=== PATIENT | male | born 1965 | race Caucasian/White ===

== ENCOUNTER 2019-09-29 02:38 | Emergency (ER) | payer OTHER ==
[2019-09-29 03:16] LABS: Bilirubin Negative (Negative); Blood, Urine Negative (Negative); Clarity Clear (Clear); Glucose, Urine (Dipstick) Normal (Negative); Ketone, Urine Negative (Negative); Leukocyte Negative Leu/uL (Negative); Nitrite Negative (Negative); Protein, Urine (Dipstick) Negative (Neg-Trace); Specific Gravity, Urine 1.014 (1.002-1.036); Urobilinogen Normal mg/dL (Less than 2); pH, Urine 5.5 (5.0-9.0)
[2019-09-29 03:38] LABS: Hemoglobin 16.9 g/dL (14.0-18.0); Mean Corpuscular HGB CONC 33.3 g/dL (32.0-36.0); Mean Corpuscular Hemoglobin 31.1 pg (27.0-31.0); Mean Corpuscular Volume 93.4 fL (78.0-98.0); Mean Platelet Volume 6.9 fL (7.4-10.4); Platelet Count 121 thou/uL (130-400); RBC Distribution Width 12.5 % (11.5-14.5); Red Blood Cell (RBC) Count 5.43 mill/uL (4.70-6.10); White Blood Cell (WBC) Count 3.5 thou/uL (4.8-10.8)
[2019-09-29 03:56] LABS: ALT (SGPT) 65 U/L (8-55); AST (SGOT) 32 U/L (5-34); Albumin 4.3 g/dL (3.5-5.0); Alkaline Phosphatase 82 U/L (40-110); Anion Gap 16 mmol/L (10-20); BUN (Urea Nitrogen) 12 mg/dL (8.4-25.7); Calc. Creatinine Clearance 0 mL/min (70-130); Calcium 9.4 mg/dL (7.8-10.44); Carbon Dioxide 19 mmol/L (22-29); Chloride 105 mmol/L (98-107); Estimated GFR-MDRD 66; Globulin 3.1 g/dL (2.4-3.5); Glucose 122 mg/dL (70-105); Potassium 3.8 mmol/L (3.5-5.1); Protein, Total 7.4 g/dL (6.0-8.3); Sodium 136 mmol/L (136-145)
[2019-09-29 04:00] LABS: Lymphocytes 30 % (21-51); MDiff Complete? YES; Monocytes 14 % (0-10); Neutrophil 56 % (42-75); Platelet Morphology Comment Appears Adequate; RBC Morphology Normal
[2019-09-29] MEDS ORDERED: Acetaminophen 500 MG TAB ONE (04:41)
--- NOTE | 2019-09-29 07:44 | RAD ---
XR Chest 1 View Portable History: Weakness and lightheadedness Comparison: None. Findings: Peripheral opacity right upper lobe. Also abnormal opacities within the lingula and left lo wer lobe. Possible scarring right lung base. No pneumothorax. Impression: Multifocal faint airspace opacities can be seen with atypical infectious process includin g COVID-19 pneumonia. Follow-up recommended..
[2019-09-29 15:35] LABS: SARS-CoV-2 N Gene Positive; SARS-CoV-2 orf1ab Positive
[2019-09-29 15:36] LABS: SARS-CoV-2 MS2 Positive; SARS-CoV-2 S Gene Positive
== END 2019-09-29 06:32 ==
LOC: ERS 02:38 → EEVIPCON 02:38 → ERS 06:32
DX: U07.1 COVID-19 (principal); R55 Syncope and collapse; S00.81XA Abrasion of other part of head, initial encounter; E03.9 Hypothyroidism, unspecified; E78.00 Pure hypercholesterolemia, unspecified; F41.9 Anxiety disorder, unspecified; F32.9 Major depressive disorder, single episode, unspecified; N40.0 Benign prostatic hyperplasia without lower urinary tract symptoms; Z87.891 Personal history of nicotine dependence; Z79.899 Other long term (current) drug therapy; W22.8XXA Striking against or struck by other objects, initial encounter; Y92.091 Bathroom in other non-institutional residence as the place of occurrence of the external cause
CPT/HCPCS: 36415; 71045; 80053; 81003; 84484; 85025; 87635; 93005; 96360; 96361; U0003

== ENCOUNTER 2019-10-01 08:10 | Inpatient (IN) | payer OTHER ==
[2019-10-01 09:04] LABS: #Lymphocytes 0.8 thou/uL (1.20-3.40); #Monocytes 0.4 thou/uL (0.11-0.59); #Neutrophils 1.7 thou/uL (1.40-6.50); %Basophils 0.7 % (0.0-1.0); %Lymphocytes 27.8 % (21.0-51.0); %Monocytes 12.3 % (0.0-10.0); %Neutrophils 58.2 % (42.0-75.0); Hemoglobin 15.9 g/dL (14.0-18.0); Mean Corpuscular HGB CONC 34.3 g/dL (32.0-36.0); Mean Corpuscular Volume 90.3 fL (78.0-98.0); Mean Platelet Volume 6.8 fL (7.4-10.4); Platelet Count 139 thou/uL (130-400); RBC Distribution Width 12.3 % (11.5-14.5); Red Blood Cell (RBC) Count 5.13 mill/uL (4.70-6.10)
--- NOTE | 2019-10-01 09:12 | RAD ---
EXAM: Single view of the chest HISTORY: Syncope COMPARISON: 09/29/2019 FINDINGS: Single view of the chest shows a normal sized cardiomediastinal silhouette. There is no dagoberto dence of consolidation, mass, or pleural effusion. The bones are unremarkable. IMPRESSION: No evidence of acute cardiopulmonary disease
[2019-10-01] MEDS ORDERED: Dexamethasone 10 MG/ML VIAL ONE (09:25)
[2019-10-01 09:29] LABS: Anion Gap 11 mmol/L (10-20); BUN (Urea Nitrogen) 13 mg/dL (8.4-25.7); Calc. Creatinine Clearance 0 mL/min (70-130); Carbon Dioxide 24 mmol/L (22-29); Chloride 105 mmol/L (98-107); Estimated GFR-MDRD 77; Potassium 3.5 mmol/L (3.5-5.1); Sodium 136 mmol/L (136-145)
[2019-10-01 09:30] LABS: ALT (SGPT) 44 U/L (8-55); AST (SGOT) 26 U/L (5-34); Albumin 4.1 g/dL (3.5-5.0); Alkaline Phosphatase 75 U/L (40-110); Bilirubin, Total 0.7 mg/dL (0.2-1.2); Calcium 8.9 mg/dL (7.8-10.44); Globulin 2.9 g/dL (2.4-3.5); Glucose 97 mg/dL (70-105)
[2019-10-01] MEDS ORDERED: Iopamidol-370 76% 500 ML 1 ML ONE (12:12)
--- NOTE | 2019-10-01 12:48 | CT ---
CT PULMONARY ANGIOGRAM WITH IV CONTRAST AND 3-D POSTPROCESSING: HISTORY:Syncope. COVID positive FINDINGS: There is good contrast opacification of the pulmonary arterial vasculature without filling defects to suggest pulmonary embolism. No pleural or pericardial effusions are seen. No pneumothoraces, focal areas of consolidation or lung nodules are noted. There are scattered patchy areas of peripheral groundglass opacities bilaterally. There are degenerative changes in the spine. Upper abdominal tomograms demonstrate changes of fatty infiltration of the liver IMPRESSION: 1. No CT evidence of pulmonary embolism. 2. findings are consistent with COVID-19 pneumonia
[2019-10-01] MEDS: Ipratropium Bromide 2.5 ml Neb NEB SCH ×2 (13:00→22:05)
[2019-10-01 13:11] LABS: CRP (Inflammatory) Less than 0.50 mg/dL (= or < 0.5); Magnesium 1.9 mg/dL (1.6-2.6)
[2019-10-01 13:24] LABS: Ferritin 162.77 ng/mL (22-322); Thyroid Stimulating Hormone 1.4904 uIU/mL (0.35-4.94)
[2019-10-01 13:33] VITALS: BMI 28.3
--- NOTE | 2019-10-01 15:26 | HP ---
PRIMARY CARE PHYSICIAN: Infirmary at the [facility]. CHIEF COMPLAINT: Passing out. HISTORY OF PRESENT ILLNESS: The patient is a 53-year-old male with past medical history significant for hypothyroid, elevated cholesterol, and BPH. He presents to the ER today after a syncopal episode at the group home. He states that this also happened approximately 3 days ago, where he was also seen in the ER. He states this happens right after he gets up in the morning and goes to stand up and he will lose consciousness and wake up on the floor. Today, he did not hit his head; however, a few days ago when he was seen on the , he did. After his syncopal episode on the , he was swabbed for COVID as he had had some loss in taste and smell, and today, the screen did come back positive. The patient states he has had no chest pain or shortness of breath. No diaphoresis. No changes in his eating. No changes in his medication. Denies any fever. Today in the ER, they completed lab work, a CTA of his chest and thorax, and then, a chest x-ray. PAST MEDICAL HISTORY: Hypothyroid, hypercholesterol, BPH, anxiety, and depression. PAST SURGICAL HISTORY: None. ALLERGIES: NO KNOWN DRUG ALLERGIES. MEDICATIONS: He states he takes a thyroid pill and a prostate pill which he believes is Flomax. We will obtain names and dosages from the group home. SOCIAL HISTORY: The patient is currently incarcerated at [facility]. He denies any alcohol, drug, or tobacco use. FAMILY HISTORY: None that the patient can recall. REVIEW OF SYSTEMS: All other review of systems are negative unless noted in the HPI. PHYSICAL EXAMINATION: VITAL SIGNS: Temperature 98.5, pulse 71, respiratory rate 16, O2 saturation 97 % on room air, blood pressure 123/72. GENERAL: The patient appears nontoxic and pain-free, very pleasant. HEENT: Head, atraumatic, normocephalic. Eyes, PERRLA. Extraocular muscles intact. NECK: Normal range of motion. Trachea midline. RESPIRATORY: No signs of respiratory distress. Clear to auscultation bilaterally. Normal chest rise. No rhonchi, no wheezes, no rales. CARDIOVASCULAR: Regular rate and rhythm. No rubs, no gallops, no murmurs. ABDOMEN: Nontender, soft. No distention. EXTREMITIES: No edema. Posterior tibial pulse present. Pedal pulse present. Shackles in place. NEUROLOGIC: Oriented to person, place, and time. PSYCHIATRIC: Normal affect. Normal behavior. LABORATORY DATA AND IMAGING STUDIES: EKG showed a normal sinus rhythm, 76 beats per minute. No ectopic beats. Chest CTA showed no CT evidence of pulmonary embolism and findings were consistent with COVID-19 pneumonia. Chest x-ray showed no evidence of acute cardiopulmonary disease. White blood cells 3.0, hemoglobin 15.9, hematocrit 46.3. D-dimer 0.29. Chemistry shows a sodium 136, potassium 3.5, BUN 13, creatinine 1.02, GFR 77, glucose 97, lactic acid 1.1. Calcium 8.9. All other labs unremarkable. IMPRESSION AND PLAN: The patient has had up to 3 syncopal episodes over the past week. We will consult Cardiology and obtain orthostatic vital signs. They are occurring in the morning when he first gets up. He does state that he takes his prostate pill in the morning versus at night, but he is having these syncopal episodes before taking it. We will continue to trend his troponins and monitor him on telemetry. We will also start him on vitamin C and zinc for COVID. VTE prophylaxis (Protonix) and GI prophylaxis (SCDs) were ordered. The patient wishes to be a full code. The patient has been discussed with Dr. Akers. Job ID: [id number] MTDD
[2019-10-01] MEDS: Terazosin HCl 1 MG CAP PO SCH (20:43)
[2019-10-01] MEDS: Simvastatin 5 MG TAB PO SCH (20:43)
[2019-10-01] MEDS: Zinc Sulfate 220 MG CAP PO SCH (20:44)
[2019-10-01] MEDS ORDERED: Albuterol 200 PUFF (6.7GM INHALER) INH PRN (21:40)
[2019-10-02] MEDS: Ipratropium Bromide 2.5 ml Neb NEB SCH ×3 (04:06→13:11)
[2019-10-02 05:18] LABS: #Lymphocytes 0.8 thou/uL (1.20-3.40); #Monocytes 0.5 thou/uL (0.11-0.59); %Eosinophils 0.4 % (0.0-10.0); %Lymphocytes 18.2 % (21.0-51.0); %Monocytes 10.7 % (0.0-10.0); %Neutrophils 70.6 % (42.0-75.0); Hemoglobin 15.4 g/dL (14.0-18.0); Mean Corpuscular HGB CONC 33.6 g/dL (32.0-36.0); Mean Corpuscular Hemoglobin 30.7 pg (27.0-31.0); Mean Corpuscular Volume 91.3 fL (78.0-98.0); Mean Platelet Volume 6.8 fL (7.4-10.4); Platelet Count 149 thou/uL (130-400); RBC Distribution Width 12.1 % (11.5-14.5); Red Blood Cell (RBC) Count 5.02 mill/uL (4.70-6.10); White Blood Cell (WBC) Count 4.3 thou/uL (4.8-10.8)
[2019-10-02 05:30] LABS: Anion Gap 14 mmol/L (10-20); BUN (Urea Nitrogen) 15 mg/dL (8.4-25.7); Calc. Creatinine Clearance 112 mL/min (70-130); Calcium 9.3 mg/dL (7.8-10.44); Carbon Dioxide 25 mmol/L (22-29); Chloride 104 mmol/L (98-107); Estimated GFR-MDRD 80; Glucose 107 mg/dL (70-105); Potassium 4.1 mmol/L (3.5-5.1); Sodium 139 mmol/L (136-145)
[2019-10-02] MEDS: Levothyroxine Sodium 50 MCG TAB PO SCH (05:49)
[2019-10-02] MEDS: Multivit, Therapeutic 1 TAB PO SCH (08:39)
[2019-10-02] MEDS: Ascorbic Acid 500 mg Chewable Tablet PO SCH (08:40)
[2019-10-02] MEDS: Acetaminophen 325 MG TAB PO PRN ×3 (12:04→20:33)
--- NOTE | 2019-10-02 15:31 | PDOC.HOSPP ---
- Subjective Encounter Date: 10/02/19 Encounter Time: 18:00 Subjective: Patient seen and examined for syncope/Vertigo. Feels lightheaded on standing. No CP or SOB. No new complaints. No overnight events - Objective Vital Signs & Weight: Vital Signs (12 hours) Temp Pulse Resp BP BP BP BP 10/02/19 12:11 99.5 F 89 16 137/80 10/02/19 08:40 99.7 F H 115 H 22 H 142/78 H 154/80 H 137/74 10/02/19 03:57 98.4 F 64 20 103/57 L Pulse Ox 10/02/19 12:11 97 10/02/19 08:40 97 10/02/19 03:57 96 Weight Weight 197 lb I&O: 10/01/19 10/02/19 10/03/19 06:59 06:59 06:59 Intake Total 790 Balance 790 Result Diagrams: 10/03/19 04:23 10/03/19 04:23 Additional Labs: Laboratory Tests 10/01/19 10/01/19 10/01/19 12:33 12:33 12:33 Ferritin 162.77 Troponin I C-Reactive Protein Less than 0.50 TSH 3rd Generation 1.4904 Cortisol 4.80 10/01/19 14:43 Ferritin Troponin I 0.028 C-Reactive Protein TSH 3rd Generation Cortisol Radiology Reviewed by me: Yes (CTA - no PE, showed COVID pneumonia) EKG Reviewed by me: Yes (Tele SR) Hospitalist ROS - Review of Systems Respiratory: reports: cough, dry. denies: shortness of breath, hemoptysis, SOB with excertion, pleuritic pain, sputum, wheezing, other Cardiovascular: denies: chest pain, palpitations, orthopnea, paroxysmal noc. dyspnea, edema, light headedness, other Gastrointestinal: denies: nausea, vomiting, abdominal pain, diarrhea, constipation, melena, hematochezia, other - Medication Medications: Active Medications Generic Name Dose Route Start Last Admin Trade Name Freq PRN Reason Stop Dose Admin Acetaminophen 650 mg 10/01/19 14:31 10/02/19 12:04 Tylenol PO 650 mg Q4H PRN Administration Headache/Fever/Mild Pain (1-3) Ascorbic Acid 1,000 mg 10/02/19 09:00 10/02/19 08:40 Vitamin C PO 1,000 mg DAILY DOREEN Administration Levothyroxine Sodium 50 mcg 10/02/19 06:00 10/02/19 05:49 Synthroid PO 50 mcg 0600 DOREEN Administration Multivitamins 1 tab 10/02/19 09:00 10/02/19 08:39 Theragran PO 1 tab DAILY DOREEN Administration Pantoprazole Sodium 40 mg 10/02/19 09:00 10/02/19 08:40 Protonix PO 40 mg DAILY DOREEN Administration Simvastatin 5 mg 10/01/19 21:00 10/01/19 20:43 Zocor PO 5 mg HS DOREEN Administration Terazosin HCl 2 mg 10/01/19 21:00 10/01/19 20:43 Hytrin PO 2 mg HS DOREEN Administration Zinc Sulfate 220 mg 10/01/19 21:00 10/01/19 20:44 Zinc Sulfate PO 220 mg HS DOREEN Administration - Exam General Appearance: ill appearing Heart: RRR, no gallops, no rubs, normal peripheral pulses Respiratory: no wheezes, no rales, no ronchi, normal chest expansion Gastrointestinal: soft, non-tender, normal bowel sounds, no guarding, no rigidity Extremities: no cyanosis, no clubbing, no edema Neurological: cranial nerve grossly intact, normal sensation to touch, no new deficit Psychiatric: normal affect, A&O x 3 Hosp A/P - Plan DVT proph w/SCDs Syncope/Vertigo - ?etio -Orthostatic negative COVID infection -on RA -has fever Hypothyroid -on Levothyroxine HLD -on Statins BPH -on Terazosin Anxiety/Depression PLAN: Orthostatic negative Cont Tele monitoring Cont other meds as above Cardiology unable to assess the pt due to COVID. Unable to get permission to use phone. Will initiate transfer to [facility] Not stable for DC Update: I was able to obtain permission for Cardiology to assess the patient over the phone. Await Cardio input
[2019-10-02] MEDS: Simvastatin 5 MG TAB PO SCH (20:33)
[2019-10-02] MEDS: Zinc Sulfate 220 MG CAP PO SCH (20:33)
[2019-10-02] MEDS: Terazosin HCl 1 MG CAP PO SCH (20:33)
[2019-10-03] MEDS: Acetaminophen 325 MG TAB PO PRN ×3 (04:28→22:52)
[2019-10-03] MEDS: Levothyroxine Sodium 50 MCG TAB PO SCH (04:28)
[2019-10-03 04:50] LABS: #Lymphocytes 0.7 thou/uL (1.20-3.40); #Monocytes 0.5 thou/uL (0.11-0.59); #Neutrophils 2.7 thou/uL (1.40-6.50); %Basophils 0.1 % (0.0-1.0); %Eosinophils 0.4 % (0.0-10.0); %Lymphocytes 17.5 % (21.0-51.0); %Monocytes 13.6 % (0.0-10.0); %Neutrophils 68.4 % (42.0-75.0); Hemoglobin 14.8 g/dL (14.0-18.0); Mean Corpuscular HGB CONC 33.4 g/dL (32.0-36.0); Mean Corpuscular Hemoglobin 30.3 pg (27.0-31.0); Mean Corpuscular Volume 90.8 fL (78.0-98.0); Mean Platelet Volume 6.6 fL (7.4-10.4); Platelet Count 138 thou/uL (130-400); RBC Distribution Width 12.2 % (11.5-14.5); Red Blood Cell (RBC) Count 4.87 mill/uL (4.70-6.10); White Blood Cell (WBC) Count 3.9 thou/uL (4.8-10.8)
[2019-10-03 05:08] LABS: Anion Gap 11 mmol/L (10-20); BUN (Urea Nitrogen) 14 mg/dL (8.4-25.7); Calc. Creatinine Clearance 93 mL/min (70-130); Calcium 8.9 mg/dL (7.8-10.44); Carbon Dioxide 26 mmol/L (22-29); Chloride 103 mmol/L (98-107); Estimated GFR-MDRD 64; Glucose 86 mg/dL (70-105); Sodium 136 mmol/L (136-145)
[2019-10-03] MEDS: Ascorbic Acid 500 mg Chewable Tablet PO SCH (07:47)
[2019-10-03] MEDS: Multivit, Therapeutic 1 TAB PO SCH (07:48)
--- NOTE | 2019-10-03 14:32 | CON ---
DATE OF CONSULTATION: HISTORY OF PRESENT ILLNESS: Juan Carlos Melchor is a 53-year-old inmate who on 09/28 got up in the morning, went to the bathroom, and became somewhat vertiginous and fell to the ground. He does not remember falling to the ground, just woke up on the ground. Since then, he has had continued episodes of vertigo even while lying supine in bed. He will have a feeling that the room is spinning. He then had another such episode on 09/30. After the episode on the , he had a COVID test and this has come back positive. He denies any diarrhea or vomiting. He has mild shortness of breath and a cough. He also has loss of taste and smell. PAST MEDICAL HISTORY: 1. Hypothyroidism. 2. Hypercholesterolemia. 3. Benign prostatic hypertrophy. 4. Anxiety. 5. Depression. OPERATIONS: None. MEDICATIONS: 1. Prazosin 2 mg daily. 2. Levothyroxine 50 mcg daily. 3. Pravastatin 10 mg nightly. ALLERGIES: NONE. SOCIAL HISTORY: He is currently incarcerated. He does not smoke or drink currently. FAMILY HISTORY: Unremarkable. REVIEW OF SYSTEMS: Negative except as noted above. PHYSICAL EXAMINATION: Blood pressure 100/63 and pulse of 86. He has not had any significant orthostasis, although his blood pressure is somewhat low at times. Physical examination is deferred due to COVID positive status. LABORATORY DATA: EKG reveals normal sinus rhythm and is unremarkable. Chest CTA revealed no evidence of pulmonary embolism. There are scattered patchy areas of peripheral ground-glass opacities, consistent with COVID. Hemoglobin 14.8, hematocrit 44.3, white count 3900, and platelets 138,000. D-dimer 0.29. Sodium 136, potassium 4.0, chloride 103, carbon dioxide 26, BUN 14, and creatinine 1.19. Troponin-I is normal. TSH is normal. Cortisol is normal. IMPRESSION: 1. Two episodes of syncope. One episode sounds as if it was associated with vertigo, but the 2nd one does not sound that way. 2. Vertigo with continued feeling of the room spinning even when he was supine in bed. 3. COVID positive. 4. Hypercholesterolemia. 5. Benign prostatic hypertrophy. 6. Hypothyroidism. PLAN: Mr. Melchor has not had any significant bradycardia. With one episode when he stood up, he was lightheaded, he did have sinus tachycardia with rate of approximately 140 per minute. He also has developed vertigo. At the present time, from a cardiac perspective, I do not feel that any further evaluation is warranted with him not having any significant bradycardia. He should get up slowly and I would imagine that as he recovers from his COVID illness that this will resolve. He also stated that he has similar episode approximately 20 years ago. Job ID: [id number] MTDD
--- NOTE | 2019-10-03 17:19 | PDOC.HOSPP ---
- Subjective Encounter Date: 10/03/19 - Objective Vital Signs & Weight: Vital Signs (12 hours) Temp Pulse Resp BP BP Pulse Ox 10/03/19 15:51 99 F 95 20 162/64 H 96 10/03/19 11:18 98.8 F 86 20 100/63 99 10/03/19 07:55 98.9 F 89 20 113/74 92 L Weight Weight 196 lb I&O: 10/02/19 10/03/19 10/04/19 06:59 06:59 06:59 Intake Total 790 1380 Output Total 1200 Balance 790 180 Result Diagrams: 10/03/19 04:23 10/03/19 04:23 Hospitalist ROS - Medication Medications: Active Medications Generic Name Dose Route Start Last Admin Trade Name Freq PRN Reason Stop Dose Admin Acetaminophen 650 mg 10/01/19 14:31 10/03/19 16:02 Tylenol PO 650 mg Q4H PRN Administration Headache/Fever/Mild Pain (1-3) Albuterol Sulfate 1 puff 10/01/19 21:40 10/02/19 22:27 Proventil Hfa INH 1 puff Q8H PRN Administration Wheezing Ascorbic Acid 1,000 mg 10/02/19 09:00 10/03/19 07:47 Vitamin C PO 1,000 mg DAILY DOREEN Administration Levothyroxine Sodium 50 mcg 10/02/19 06:00 10/03/19 04:28 Synthroid PO 50 mcg 0600 DOREEN Administration Multivitamins 1 tab 10/02/19 09:00 10/03/19 07:48 Theragran PO 1 tab DAILY DOREEN Administration Pantoprazole Sodium 40 mg 10/02/19 09:00 10/03/19 07:48 Protonix PO 40 mg DAILY DOREEN Administration Simvastatin 5 mg 10/01/19 21:00 10/02/19 20:33 Zocor PO 5 mg HS DOREEN Administration Terazosin HCl 2 mg 10/01/19 21:00 10/02/19 20:33 Hytrin PO 2 mg HS DOREEN Administration Zinc Sulfate 220 mg 10/01/19 21:00 10/02/19 20:33 Zinc Sulfate PO 220 mg HS DOREEN Administration Hosp A/P - Plan Syncope/Vertigo - ?etio -Orthostatic vitals negative COVID infection -on RA -has fever Hypothyroid -on Levothyroxine HLD -on Statins BPH -on Terazosin Anxiety/Depression PLAN: Add Meclizine No abn rhythm on tele Cardio input appreciate AM labs including infl markers Will prob need infirmary due to persistent lightheadedness Cont Tele monitoring Cont other meds as above
--- NOTE | 2019-10-03 19:12 | CON ---
DATE OF CONSULTATION: 10/03/2019 REASON FOR CONSULTATION: COVID infection and vertigo. HISTORY OF PRESENT ILLNESS: A 53-year-old patient with history of hypothyroidism, hyperlipidemia, and BPH, who is an inmate at [facility] and he developed dizziness for the past few days before admission. He also has these episodes of "loss of consciousness" when he is standing up, so on arrival, his BP was 105/70, pulse 80, respirations 17, temperature 99.2, and O2 saturation 97 on room air. The exam was not remarkable. Because of possible syncope, Cardiology, Dr. Woodard, evaluated the patient and did not feel that was a cardiac related syndrome. CT angio completed, showed scattered areas of ground-glass opacities bilaterally. Those are quite mild. Currently, he is having intermittent vertiginous sensations and has some frontal headaches intermittently. No scotomas or of floaters. No sore throat, odynophagia, or dysphagia. No anosmia. A little bit of cough, but not much. No dyspnea. No chest pain. No abdominal pain or diarrhea. No genitourinary symptoms. No joint symptoms. MEDICAL HISTORY: 1. Hypothyroidism. 2. Hyperlipidemia. 3. BPH. 4. Anxiety. 5. Depression. SOCIAL HISTORY: Former smoker. He is at [facility] in the [facility]. ALLERGIES: NONE. MEDICATIONS: 1. Pravastatin. 2. Synthroid. 3. Terazosin. CURRENT MEDICATIONS: Include: 1. Enoxaparin. 2. Meclizine started today. 3. Terazosin. 4. Zocor. FAMILY HISTORY: Noncontributory. OBJECTIVE: VITAL SIGNS: T-max 101.1 and he is now 99, blood pressure 160/60, pulse 95, respirations 20, and O2 saturation 96 on room air. GENERAL: Appears in no distress. HEENT: No nystagmus. Pupils are equal. Conjunctivae normal. Oral cavity normal. LUNGS: Symmetric, clear breath sounds. HEART: S1 and S2. Regular rate. No S3 or S4. ABDOMEN: Soft, not distended or tender. No ascites. No bladder distention. EXTREMITIES: No joint inflammatory activity. Moves extremities equally. NEUROLOGIC: Cognitive function appears to be intact. LABORATORY DATA: White cell count 3.9, hemoglobin 14.8, and platelets 138. D- dimer 0.9. Ferritin 162. C-reactive protein was within normal limits. ASSESSMENT: 1. Hypothyroidism. 2. Hyperlipidemia. 3. Mild COVID infection thus far. The duration of illness is around 5 to 7 days and he does have vertigo associated with it. The vertigo has been described in patients with COVID infection, so it could conceivably be secondary to the infection and neurotropism. I would treat this symptomatically and consider discharge planning for followup in the infirmary at [facility] unit where he belongs to. Job ID: [id number] [facility]
[2019-10-03] MEDS: Terazosin HCl 1 MG CAP PO SCH (19:44)
[2019-10-03] MEDS: Zinc Sulfate 220 MG CAP PO SCH (19:44)
[2019-10-03] MEDS: Simvastatin 5 MG TAB PO SCH (19:44)
[2019-10-03] MEDS: Enoxaparin Sodium 40 MG/0.4 ML SYRINGE SC SCH (19:44)
[2019-10-03] MEDS: Meclizine HCl 25 MG TAB PO SCH (19:44)
[2019-10-03] MEDS ORDERED: Ondansetron PF 4 MG/2 ML Vial IVP PRN (22:17)
[2019-10-04 04:53] LABS: #Monocytes 0.5 thou/uL (0.11-0.59); #Neutrophils 2.3 thou/uL (1.40-6.50); %Basophils 0.6 % (0.0-1.0); %Eosinophils 1.2 % (0.0-10.0); %Lymphocytes 25.2 % (21.0-51.0); %Monocytes 12.6 % (0.0-10.0); %Neutrophils 60.4 % (42.0-75.0); Hemoglobin 14.7 g/dL (14.0-18.0); Mean Corpuscular HGB CONC 32.9 g/dL (32.0-36.0); Mean Corpuscular Hemoglobin 29.7 pg (27.0-31.0); Mean Corpuscular Volume 90.3 fL (78.0-98.0); Mean Platelet Volume 6.7 fL (7.4-10.4); Platelet Count 144 thou/uL (130-400); RBC Distribution Width 12.1 % (11.5-14.5); Red Blood Cell (RBC) Count 4.95 mill/uL (4.70-6.10); White Blood Cell (WBC) Count 3.9 thou/uL (4.8-10.8)
[2019-10-04 05:16] LABS: Anion Gap 11 mmol/L (10-20); BUN (Urea Nitrogen) 11 mg/dL (8.4-25.7); Calc. Creatinine Clearance 118 mL/min (70-130); Calcium 8.7 mg/dL (7.8-10.44); Carbon Dioxide 24 mmol/L (22-29); Chloride 106 mmol/L (98-107); Estimated GFR-MDRD 86; Glucose 93 mg/dL (70-105); Potassium 3.9 mmol/L (3.5-5.1); Sodium 137 mmol/L (136-145)
[2019-10-04] MEDS: Levothyroxine Sodium 50 MCG TAB PO SCH (05:39)
[2019-10-04] MEDS: Meclizine HCl 25 MG TAB PO SCH ×3 (09:24→19:43)
[2019-10-04] MEDS: Multivit, Therapeutic 1 TAB PO SCH (09:24)
[2019-10-04] MEDS: Ascorbic Acid 500 mg Chewable Tablet PO SCH (11:43)
--- NOTE | 2019-10-04 15:36 | PDOC.HOSPP ---
- Subjective Encounter Date: 10/04/19 Encounter Time: 15:00 Subjective: Patient seen and examined for syncope/vertigo. Vertigo improving with Meclizine. No new complaints. No overnight events - Objective Vital Signs & Weight: Vital Signs (12 hours) Temp Pulse Resp BP Pulse Ox 10/04/19 11:56 98.8 F 72 18 129/67 94 L 10/04/19 09:44 79 20 108/67 95 10/04/19 08:00 94 L Weight Weight 196 lb I&O: 10/03/19 10/04/19 10/05/19 06:59 06:59 06:59 Intake Total 1380 960 Output Total 1200 700 Balance 180 260 Result Diagrams: 10/04/19 04:39 10/04/19 04:39 EKG Reviewed by me: Yes (Tele SR) Hospitalist ROS - Review of Systems Respiratory: denies: cough, dry, shortness of breath, hemoptysis, SOB with excertion, pleuritic pain, sputum, wheezing, other Cardiovascular: denies: chest pain, palpitations, orthopnea, paroxysmal noc. dyspnea, edema, light headedness, other Gastrointestinal: denies: nausea, vomiting, abdominal pain, diarrhea, constipation, melena, hematochezia, other - Medication Medications: Active Medications Generic Name Dose Route Start Last Admin Trade Name Freq PRN Reason Stop Dose Admin Acetaminophen 650 mg 10/01/19 14:31 10/03/19 22:52 Tylenol PO 650 mg Q4H PRN Administration Headache/Fever/Mild Pain (1-3) Albuterol Sulfate 1 puff 10/01/19 21:40 10/02/19 22:27 Proventil Hfa INH 1 puff Q8H PRN Administration Wheezing Ascorbic Acid 1,000 mg 10/02/19 09:00 10/04/19 11:43 Vitamin C PO 1,000 mg DAILY DOREEN Administration Enoxaparin Sodium 40 mg 10/03/19 21:00 10/03/19 19:44 Lovenox SC 40 mg 2100 DOREEN Administration Levothyroxine Sodium 50 mcg 10/02/19 06:00 10/04/19 05:39 Synthroid PO 50 mcg 0600 DOREEN Administration Meclizine HCl 25 mg 10/03/19 21:00 10/04/19 09:24 Antivert PO 25 mg TID DOREEN Administration Multivitamins 1 tab 10/02/19 09:00 10/04/19 09:24 Theragran PO 1 tab DAILY DOREEN Administration Ondansetron HCl 4 mg 10/03/19 22:17 10/03/19 22:52 Zofran IVP 4 mg Q6H PRN Administration Nausea/Vomiting Pantoprazole Sodium 40 mg 10/02/19 09:00 10/04/19 09:24 Protonix PO 40 mg DAILY DOREEN Administration Simvastatin 5 mg 10/01/19 21:00 10/03/19 19:44 Zocor PO 5 mg HS DOREEN Administration Terazosin HCl 2 mg 10/01/19 21:00 10/03/19 19:44 Hytrin PO 2 mg HS DOREEN Administration Zinc Sulfate 220 mg 10/01/19 21:00 10/03/19 19:44 Zinc Sulfate PO 220 mg HS DOREEN Administration - Exam General Appearance: NAD Heart: RRR, no gallops Respiratory: no wheezes, no ronchi Gastrointestinal: soft, non-tender, normal bowel sounds Extremities: no cyanosis, no clubbing Neurological: no new deficit Psychiatric: normal affect, A&O x 3 Hosp A/P - Plan DVT proph w/lovenox, DVT proph w/SCDs Syncope/Vertigo -Orthostatic vitals negative -Vertigo prob due to COVID per ID - No new episodes - Meclizine helping with Vertigo COVID infection -on RA -has intermittent fever Hypothyroid -on Levothyroxine HLD -on Statins BPH -on Terazosin Anxiety/Depression -no SI PLAN: Cont Meclizine Will transfer to [facility] when bed available Cont Fall precautions Cont other meds as above Was evaluated by PT today Stable for dc
[2019-10-04] MEDS: Enoxaparin Sodium 40 MG/0.4 ML SYRINGE SC SCH (19:43)
[2019-10-04] MEDS: Terazosin HCl 1 MG CAP PO SCH (19:43)
[2019-10-04] MEDS: Zinc Sulfate 220 MG CAP PO SCH (19:43)
[2019-10-04] MEDS: Simvastatin 5 MG TAB PO SCH (20:21)
[2019-10-05] MEDS: Levothyroxine Sodium 50 MCG TAB PO SCH (06:00)
[2019-10-05] MEDS: Multivit, Therapeutic 1 TAB PO SCH (09:04)
[2019-10-05] MEDS: Ascorbic Acid 500 mg Chewable Tablet PO SCH (09:04)
[2019-10-05] MEDS: Meclizine HCl 25 MG TAB PO SCH ×3 (09:04→21:01)
[2019-10-05] MEDS ORDERED: Polyethylene Glycol 3350 17 GM Packet PO PRN (13:59)
[2019-10-05] MEDS: Senokot S 8.6-50 MG TAB PO SCH (21:01)
[2019-10-05] MEDS: Enoxaparin Sodium 40 MG/0.4 ML SYRINGE SC SCH (21:01)
[2019-10-05] MEDS: Simvastatin 5 MG TAB PO SCH (21:01)
[2019-10-05] MEDS: Zinc Sulfate 220 MG CAP PO SCH (21:02)
[2019-10-05] MEDS: Terazosin HCl 1 MG CAP PO SCH (21:02)
--- NOTE | 2019-10-05 21:56 | PDOC.HOSPP ---
- Subjective Encounter Date: 10/05/19 Encounter Time: 16:00 Subjective: Patient seen and examined for syncope. No new complaints. No overnight events - Objective Vital Signs & Weight: Vital Signs (12 hours) Temp Pulse Resp BP BP Pulse Ox 10/05/19 16:21 98.5 F 71 16 120/70 93 L 10/05/19 12:00 98.6 F 67 16 113/79 94 L Weight Weight 196 lb I&O: 10/04/19 10/05/19 10/06/19 06:59 06:59 06:59 Intake Total 960 1500 1800 Output Total 700 Balance 260 1500 1800 Result Diagrams: 10/04/19 04:39 10/04/19 04:39 EKG Reviewed by me: Yes (Tele SR) Hospitalist ROS - Review of Systems Respiratory: denies: cough, dry, shortness of breath, hemoptysis, SOB with excertion, pleuritic pain, sputum, wheezing, other Cardiovascular: denies: chest pain, palpitations, orthopnea, paroxysmal noc. dyspnea, edema, light headedness, other Gastrointestinal: denies: nausea, vomiting, abdominal pain, diarrhea, constipation, melena, hematochezia, other - Medication Medications: Active Medications Generic Name Dose Route Start Last Admin Trade Name Freq PRN Reason Stop Dose Admin Acetaminophen 650 mg 10/01/19 14:31 10/03/19 22:52 Tylenol PO 650 mg Q4H PRN Administration Headache/Fever/Mild Pain (1-3) Albuterol Sulfate 1 puff 10/01/19 21:40 10/02/19 22:27 Proventil Hfa INH 1 puff Q8H PRN Administration Wheezing Ascorbic Acid 1,000 mg 10/02/19 09:00 10/05/19 09:04 Vitamin C PO 1,000 mg DAILY DOREEN Administration Enoxaparin Sodium 40 mg 10/03/19 21:00 10/05/19 21:01 Lovenox SC 40 mg 2100 DOREEN Administration Levothyroxine Sodium 50 mcg 10/02/19 06:00 10/05/19 06:00 Synthroid PO 50 mcg 0600 DOREEN Administration Meclizine HCl 25 mg 10/03/19 21:00 10/05/19 21:01 Antivert PO 25 mg TID DOREEN Administration Multivitamins 1 tab 10/02/19 09:00 10/05/19 09:04 Theragran PO 1 tab DAILY DOREEN Administration Ondansetron HCl 4 mg 10/03/19 22:17 10/03/19 22:52 Zofran IVP 4 mg Q6H PRN Administration Nausea/Vomiting Pantoprazole Sodium 40 mg 10/02/19 09:00 10/05/19 09:04 Protonix PO 40 mg DAILY DOREEN Administration Polyethylene Glycol 17 gm 10/05/19 13:59 10/05/19 14:39 Miralax PO 17 gm DAILYPRN PRN Administration Constipation Senna/Docusate Sodium 2 tab 10/05/19 21:00 10/05/19 21:01 Senokot S PO 2 tab BID DOREEN Administration Simvastatin 5 mg 10/01/19 21:00 10/05/19 21:01 Zocor PO 5 mg HS DOREEN Administration Terazosin HCl 2 mg 10/01/19 21:00 10/05/19 21:02 Hytrin PO 2 mg HS DOREEN Administration Zinc Sulfate 220 mg 10/01/19 21:00 10/05/19 21:02 Zinc Sulfate PO 220 mg HS DOREEN Administration - Exam General Appearance: NAD Heart: RRR, no gallops Respiratory: no wheezes, no ronchi Gastrointestinal: non-tender, normal bowel sounds Neurological: no new deficit Psychiatric: normal affect, A&O x 3 Hosp A/P - Plan DVT proph w/lovenox, DVT proph w/SCDs Syncope/Vertigo -Orthostatic vitals negative -Vertigo prob due to COVID infection per ID - on Meclizine COVID infection -on RA -has intermittent fever Hypothyroid -on Levothyroxine HLD -on Statins BPH -on Terazosin Anxiety/Depression -no SI PLAN: Cont other meds as above Will transfer to [facility] when bed available Cont Meclizine with Fall precautions Stable for dc AM labs
[2019-10-06 05:21] LABS: #Eosinphils 0.3 thou/uL (0.0-0.7); #Lymphocytes 1.3 thou/uL (1.20-3.40); #Monocytes 0.4 thou/uL (0.11-0.59); #Neutrophils 2.4 thou/uL (1.40-6.50); %Basophils 0.4 % (0.0-1.0); %Eosinophils 6.6 % (0.0-10.0); %Lymphocytes 28.6 % (21.0-51.0); %Monocytes 9.2 % (0.0-10.0); %Neutrophils 55.3 % (42.0-75.0); Mean Corpuscular HGB CONC 32.6 g/dL (32.0-36.0); Mean Corpuscular Hemoglobin 29.8 pg (27.0-31.0); Mean Corpuscular Volume 91.4 fL (78.0-98.0); Mean Platelet Volume 6.7 fL (7.4-10.4); Platelet Count 185 thou/uL (130-400); Red Blood Cell (RBC) Count 4.69 mill/uL (4.70-6.10); White Blood Cell (WBC) Count 4.4 thou/uL (4.8-10.8)
[2019-10-06] MEDS: Levothyroxine Sodium 50 MCG TAB PO SCH (05:29)
[2019-10-06 05:40] LABS: Anion Gap 12 mmol/L (10-20); BUN (Urea Nitrogen) 10 mg/dL (8.4-25.7); CRP (Inflammatory) Less than 0.50 mg/dL (= or < 0.5); Calc. Creatinine Clearance 119 mL/min (70-130); Carbon Dioxide 24 mmol/L (22-29); Chloride 105 mmol/L (98-107); Estimated GFR-MDRD 87; Glucose 91 mg/dL (70-105); Potassium 4.1 mmol/L (3.5-5.1); Sodium 137 mmol/L (136-145)
[2019-10-06] MEDS: Senokot S 8.6-50 MG TAB PO SCH ×3 (08:12→20:35)
[2019-10-06] MEDS: Ascorbic Acid 500 mg Chewable Tablet PO SCH (08:12)
[2019-10-06] MEDS: Meclizine HCl 25 MG TAB PO SCH ×3 (08:13→20:36)
[2019-10-06] MEDS: Multivit, Therapeutic 1 TAB PO SCH (08:13)
--- NOTE | 2019-10-06 19:15 | PDOC.HOSPP ---
- Subjective Encounter Date: 10/06/19 Encounter Time: 20:40 Subjective: Patient seen and examined for near syncope. No new complaints. No overnight events - Objective Vital Signs & Weight: Vital Signs (12 hours) Temp Pulse Resp BP BP Pulse Ox 10/06/19 15:30 99.3 F 76 16 114/74 93 L 10/06/19 11:50 98.2 F 88 14 125/75 96 10/06/19 08:25 98 10/06/19 08:20 97.6 F 72 14 133/74 98 Weight Weight 196 lb I&O: 10/05/19 10/06/19 10/07/19 06:59 06:59 06:59 Intake Total 1500 2340 1020 Balance 1500 2340 1020 Result Diagrams: 10/06/19 04:50 10/06/19 04:50 EKG Reviewed by me: Yes (Tele SR) Hospitalist ROS - Review of Systems Respiratory: denies: cough, dry, shortness of breath, hemoptysis, SOB with excertion, pleuritic pain, sputum, wheezing, other Cardiovascular: denies: chest pain, palpitations, orthopnea, paroxysmal noc. dyspnea, edema, light headedness, other - Medication Medications: Active Medications Generic Name Dose Route Start Last Admin Trade Name Freq PRN Reason Stop Dose Admin Acetaminophen 650 mg 10/01/19 14:31 10/03/19 22:52 Tylenol PO 650 mg Q4H PRN Administration Headache/Fever/Mild Pain (1-3) Albuterol Sulfate 1 puff 10/01/19 21:40 10/02/19 22:27 Proventil Hfa INH 1 puff Q8H PRN Administration Wheezing Ascorbic Acid 1,000 mg 10/02/19 09:00 10/06/19 08:12 Vitamin C PO 1,000 mg DAILY DOREEN Administration Enoxaparin Sodium 40 mg 10/03/19 21:00 10/05/19 21:01 Lovenox SC 40 mg 2100 DOREEN Administration Levothyroxine Sodium 50 mcg 10/02/19 06:00 10/06/19 05:29 Synthroid PO 50 mcg 0600 DOREEN Administration Meclizine HCl 25 mg 10/03/19 21:00 10/06/19 15:23 Antivert PO 25 mg TID DOREEN Administration Multivitamins 1 tab 10/02/19 09:00 10/06/19 08:13 Theragran PO 1 tab DAILY DOREEN Administration Ondansetron HCl 4 mg 10/03/19 22:17 10/03/19 22:52 Zofran IVP 4 mg Q6H PRN Administration Nausea/Vomiting Pantoprazole Sodium 40 mg 10/02/19 09:00 10/06/19 08:13 Protonix PO 40 mg DAILY DOREEN Administration Polyethylene Glycol 17 gm 10/05/19 13:59 10/05/19 14:39 Miralax PO 17 gm DAILYPRN PRN Administration Constipation Senna/Docusate Sodium 2 tab 10/05/19 21:00 10/06/19 08:30 Senokot S PO Not Given BID DOREEN Simvastatin 5 mg 10/01/19 21:00 10/05/19 21:01 Zocor PO 5 mg HS DOREEN Administration Terazosin HCl 2 mg 10/01/19 21:00 10/05/19 21:02 Hytrin PO 2 mg HS DOREEN Administration Zinc Sulfate 220 mg 10/01/19 21:00 10/05/19 21:02 Zinc Sulfate PO 220 mg HS DOREEN Administration - Exam General Appearance: NAD Heart: RRR, no gallops Respiratory: no wheezes, no ronchi Gastrointestinal: soft, non-tender, non-distended Extremities: no cyanosis Neurological: no new deficit Psychiatric: normal affect, A&O x 3 Hosp A/P - Plan DVT proph w/SCDs Syncope/Vertigo -Orthostatic vitals negative -Vertigo prob due to COVID infection per ID - on Meclizine COVID infection -on RA Hypothyroid -on Levothyroxine HLD -on Statins BPH -on Terazosin Anxiety/Depression -no SI PLAN: Cont Meclizine with Fall precautions Cont other meds as above Will transfer to [facility] when bed available Stable for dc
[2019-10-06] MEDS: Enoxaparin Sodium 40 MG/0.4 ML SYRINGE SC SCH (20:35)
[2019-10-06] MEDS: Simvastatin 5 MG TAB PO SCH (20:36)
[2019-10-06] MEDS: Zinc Sulfate 220 MG CAP PO SCH (20:36)
[2019-10-06] MEDS: Terazosin HCl 1 MG CAP PO SCH (20:37)
[2019-10-06] MEDS: Acetaminophen 325 MG TAB PO PRN (20:49)
[2019-10-07] MEDS: Levothyroxine Sodium 50 MCG TAB PO SCH (04:01)
--- NOTE | 2019-10-07 08:22 | PDOC.HOSPP ---
- Subjective Encounter Date: 10/07/19 Encounter Time: 17:00 Subjective: Patient seen and examined for near syncope. No new complaints. No overnight events - Objective Vital Signs & Weight: Vital Signs (12 hours) Temp Pulse Resp BP BP Pulse Ox 10/07/19 04:00 98.0 F 60 16 112/66 95 10/06/19 23:40 98.4 F 59 L 16 143/87 H 96 10/06/19 20:52 99.6 F 77 13 124/70 94 L Weight Weight 196 lb I&O: 10/06/19 10/07/19 10/08/19 06:59 06:59 06:59 Intake Total 2340 2670 Balance 2340 2670 Result Diagrams: 10/06/19 04:50 10/06/19 04:50 EKG Reviewed by me: Yes (Tele SR) Hospitalist ROS - Review of Systems Respiratory: denies: cough, dry, shortness of breath, hemoptysis, SOB with excertion, pleuritic pain, sputum, wheezing, other Cardiovascular: denies: chest pain, palpitations, orthopnea, paroxysmal noc. dyspnea, edema, light headedness, other - Medication Medications: Active Medications Generic Name Dose Route Start Last Admin Trade Name Freq PRN Reason Stop Dose Admin Acetaminophen 650 mg 10/01/19 14:31 10/06/19 20:49 Tylenol PO 650 mg Q4H PRN Administration Headache/Fever/Mild Pain (1-3) Albuterol Sulfate 1 puff 10/01/19 21:40 10/02/19 22:27 Proventil Hfa INH 1 puff Q8H PRN Administration Wheezing Ascorbic Acid 1,000 mg 10/02/19 09:00 10/06/19 08:12 Vitamin C PO 1,000 mg DAILY DOREEN Administration Enoxaparin Sodium 40 mg 10/03/19 21:00 10/06/19 20:35 Lovenox SC 40 mg 2100 DOREEN Administration Levothyroxine Sodium 50 mcg 10/02/19 06:00 10/07/19 04:01 Synthroid PO 50 mcg 0600 DOREEN Administration Meclizine HCl 25 mg 10/03/19 21:00 10/06/19 20:36 Antivert PO 25 mg TID DOREEN Administration Multivitamins 1 tab 10/02/19 09:00 10/06/19 08:13 Theragran PO 1 tab DAILY DOREEN Administration Ondansetron HCl 4 mg 10/03/19 22:17 10/03/19 22:52 Zofran IVP 4 mg Q6H PRN Administration Nausea/Vomiting Pantoprazole Sodium 40 mg 10/02/19 09:00 10/06/19 08:13 Protonix PO 40 mg DAILY DOREEN Administration Polyethylene Glycol 17 gm 10/05/19 13:59 10/05/19 14:39 Miralax PO 17 gm DAILYPRN PRN Administration Constipation Senna/Docusate Sodium 2 tab 10/05/19 21:00 10/06/19 20:35 Senokot S PO 2 tab BID DOREEN Administration Simvastatin 5 mg 10/01/19 21:00 10/06/19 20:36 Zocor PO 5 mg HS DOREEN Administration Terazosin HCl 2 mg 10/01/19 21:00 10/06/19 20:37 Hytrin PO 2 mg HS DOREEN Administration Zinc Sulfate 220 mg 10/01/19 21:00 10/06/19 20:36 Zinc Sulfate PO 220 mg HS DOREEN Administration - Exam General Appearance: NAD Heart: RRR, no gallops Respiratory: no wheezes, no ronchi Gastrointestinal: non-tender, normal bowel sounds Extremities: no cyanosis Neurological: no new deficit Hosp A/P - Plan DVT proph w/lovenox Syncope/Vertigo -Orthostatic vitals negative -Vertigo prob due to COVID infection per ID - on Meclizine - improving COVID infection -on RA Hypothyroid -on Levothyroxine HLD -on Statins BPH -on Terazosin Anxiety/Depression PLAN: Cont Meclizine Cont Fall precautions Cont Levothyroxin, Terazosin and other meds as above Await transfer to [facility] Pt is stable for dc
[2019-10-07] MEDS: Ascorbic Acid 500 mg Chewable Tablet PO SCH (09:10)
[2019-10-07] MEDS: Meclizine HCl 25 MG TAB PO SCH ×3 (09:13→19:33)
[2019-10-07] MEDS: Senokot S 8.6-50 MG TAB PO SCH ×3 (09:13→19:33)
[2019-10-07] MEDS: Multivit, Therapeutic 1 TAB PO SCH (09:13)
[2019-10-07] MEDS: Simvastatin 5 MG TAB PO SCH (19:33)
[2019-10-07] MEDS: Zinc Sulfate 220 MG CAP PO SCH (19:33)
[2019-10-07] MEDS: Terazosin HCl 1 MG CAP PO SCH (19:33)
[2019-10-07] MEDS ORDERED: Enoxaparin Sodium 40 MG/0.4 ML SYRINGE SC SCH (21:00)
[2019-10-08] MEDS: Levothyroxine Sodium 50 MCG TAB PO SCH (05:17)
[2019-10-08] MEDS: Senokot S 8.6-50 MG TAB PO SCH (08:33)
[2019-10-08] MEDS: Meclizine HCl 25 MG TAB PO SCH ×2 (08:40→15:27)
[2019-10-08] MEDS: Multivit, Therapeutic 1 TAB PO SCH (08:40)
[2019-10-08] MEDS: Ascorbic Acid 500 mg Chewable Tablet PO SCH (08:40)
--- NOTE | 2019-10-08 13:40 | PQF ---
CLINICAL DOCUMENTATION CLARIFICATION FORM: Dear Dr. Akers Date: 10/08/2019 Please exercise your independent, professional judgment in responding to the clarification form. Clinical indicators are provided on the bottom of this form for your review. Please check appropriate box(es) to clarify if the following diagnosis has been ruled in our ruled out: COVID Pneumonia [ x ] Ruled in diagnosis [ x ] Continue to treat [ ] Resolved [ ] Ruled out diagnosis [ ] Improving [ ] Cannot rule out diagnosis [ ] Other diagnosis [ ] Unable to determine In addition, please specify: Present on Admission (POA): [ x] Yes [ ] No [ ] Unable to determine For continuity of documentation, please document condition throughout progress notes and discharge summary. Thank You. To be completed by CDI/Coding staff for physician review: CLINICAL INDICATORS - SIGNS / SYMPTOMS / LABS / RESULTS AND LOCATION IN MR ER Record 09/30: HPI: here 2 days ago with a syncopal episode and x-ray and lab work revealed that he has COVID-19. DX: syncope Covid pneumonia H&P 09/30 ([place]): Lab/Imaging: Chest CTA showed no CT evidence of pulmonary embolism and findings were consistent with COVID-19 pneumonia. WBC 3.0 10/01 ([facility]) radiology reviewed by me: CTA no PE, showed COVID pneumonia Syncope/Vertigo - ?etio COVID infection Has fever 10/02([facility]) CT angio showed scattered areas of ground-glass opacities bilaterally. Those are quite mild. VS: T-max 101.1 now 99, BP 160/60, pu;se 95, resp 20, O2 sat 96 RA Mild COVID infection thus far 10/06 ([facility]) Vertigo prob due to COVID infection per ID RISK FACTORS / RESULTS AND LOCATION IN MR H&P 09/30 ([place]): The pt is currently incarcerated. 3 syncopal episodes over the past week. Covid. TREATMENTS / RESULTS AND LOCATION IN MR Order 09/30: CTA angio chest for syncope, covid H&P 09/30 ([place]):I/P: will start him on vitamin C and zinc for COVID Order 09/30: Nursing: O2 to keep sats> 92% MAR: 09/30 -10/01: ibis Max q6 hr Thank you, Merlene Narayan, RN, BSN [email or web address] This is a permanent part of the Medical Record [facility]
[2019-10-08 15:41] VITALS: BP 106/64; TEMP 98.2
--- NOTE | 2019-10-09 09:38 | DIS ---
DATE OF ADMISSION: 10/01/2019 DATE OF DISCHARGE: 10/08/2019 DISCHARGE DISPOSITION: [facility]. Vital signs on the day of discharge showed temperature 98.3, pulse rate of 69, respirations of 16, blood pressure of 117/78 with O2 saturation 94% on room air. There was no dizziness reported on the day of discharge. BRIEF HOSPITAL COURSE: The patient is a 53-year-old male, who presented to the emergency room after near syncopal episode at the unit. He was seen in the emergency room 2 to 3 days prior to admission for similar complaint and was discharged back to the unit. COVID testing was sent at that time. He also reported some loss of taste and smell. His COVID screen came back positive. He was monitored on telemetry unit, there did not show significant arrhythmias. The patient was evaluated by Cardiology. Echocardiogram could not be done due to COVID-19. He was also evaluated by Infectious Disease. Per Infectious Disease , the patient's vertigo is probably due to COVID infection. His symptoms have resolved after starting meclizine 25 mg 3 times daily on a scheduled basis. He is saturating 94% on room air. His inflammatory markers yesterday showed ferritin of 230, CRP of less than 0.5, and D-dimer was less than 0.27 two days ago. He will be discharged to [facility] due to near syncope. FINAL DIAGNOSES: 1. Syncope/vertigo probably secondary to COVID-19 infection. No significant arrhythmias on telemetry monitoring. Echo could not be done due to COVID-19. 2. COVID-19 Pneumonia - POA. The patient is saturating 94% on room air. 3. Hypothyroidism. 4. Hyperlipidemia. 5. Benign prostatic hypertrophy. 6. Anxiety. 7. Depression without any suicidal ideation. 8. COVID-19 infection with pneumonia. DIAGNOSTIC TESTS: CT angiogram of the chest was negative for pulmonary embolism. It showed findings consistent with COVID-19 pneumonia. Job ID: [id number] [id number]
== END 2019-10-08 16:15 | disposition short-term general hospital (02) | DRG 177 ==
LOC: ERS 08:10 → EEVIPCON 12:01 → 2SW 12:01 → OBSVTOIN 12:01
PROVIDERS: ADMIT Internal Medicine; ATTEND Internal Medicine
PROC: 8E0ZXY6 Isolation (ICD-10-PCS; principal; 2019-10-01)
DX: U07.1 COVID-19 (principal); J12.89 Other viral pneumonia; E03.9 Hypothyroidism, unspecified; N40.0 Benign prostatic hyperplasia without lower urinary tract symptoms; F41.9 Anxiety disorder, unspecified; F32.9 Major depressive disorder, single episode, unspecified; E78.5 Hyperlipidemia, unspecified; Z87.891 Personal history of nicotine dependence
CPT/HCPCS: 36415; 71045; 71275; 80048; 80053; 81003; 82533; 82607; 82728; 82746; 83605; 83735; 84443; 84484; 85025; 85379; 86140; 87040; 87635; 93005; 96360; 96361; 96374; G0378; J1100; J1650; J2405; Q9967; U0003